=== PATIENT | female | born 1955 | race African-American/Black ===

== ENCOUNTER 2018-09-05 21:31 | Inpatient (IN) ==
--- NOTE | 2018-09-05 22:21 | PROVIDER DOCUMENTATION ---
HPI-Syncope/Dizziness - General Chief Complaint: Seizure Stated Complaint: VOMITING AND LOSING CONSCIOUSNESS Time Seen by Provider: 09/05/18 22:13 Allergies/Adverse Reactions: Patient Allergies Allergy/AdvReac Type Severity Reaction Status Date / Time No Known Allergies Allergy Verified 08/30/17 20:00 Home Medications: Home Medication List Medication Instructions Recorded Confirmed Last Taken Type Levothyroxine [Synthroid] 50 mcg PO DAILY 04/14/14 09/06/18 08/30/17 08:00 History Amlodipine/Atorvastatin [Caduet 10 1 ea PO DAILY 09/06/18 09/06/18 Unknown History mg-20 mg Tablet] Amoxicillin 875 mg PO BID 09/06/18 09/06/18 Unknown History Lisinopril/Hydrochlorothiazide 1 ea PO DAILY 09/06/18 09/06/18 Unknown History [Lisinopril-Hctz 20-25 mg Tab] Loratadine 10 mg PO DAILY 09/06/18 09/06/18 Unknown History Mometasone Furoate [Nasonex] 17 gm NS 09/06/18 09/06/18 Unknown History - History of Present Illness-Syncope/Dizzy Nature of Presenting Problem: patient was reported having seizure, passed out and vomiting. patient stated she had these symptoms before and was never diagnosed of seizure. Prior Episodes: reports: single episode today Onset/Duration: reports: abrupt Timing: reports: improving, resolved prior to arrival Symptoms prior to episode: reports: none Context: reports: lost consciousness Location of injury. (If syncope resulted in an injury.): reports: none Current Symptoms: denies: fever, chills Review of Systems - Adult - REVIEW OF SYSTEMS - ADULT Constitutional: reports: no symptoms reported Eyes: reports: no symptoms reported Ears, Nose, Mouth & Throat: reports: no symptoms reported Cardiovascular: reports: no symptoms reported Respiratory: reports: no symptoms reported Gastrointestinal: reports: nausea, vomiting Genitourinary: reports: no symptoms reported Musculoskeletal: reports: no symptoms reported Integumentary: reports: no symptoms reported Neurological: reports: seizure, syncope Psychiatric: reports: no symptoms reported Hematologic/Lymphatic: reports: no symptoms reported Allergic/Immunologic: reports: no symptoms reported Past History - Adult - PAST MEDICAL HISTORY-ADULT Review of Records: reports: Nursing Assessment Review Cardiovascular: reports: HTN, hyperlipidemia Neurological: denies: cancer/tumor, CVA, stroke deficits, Seizures/Epilepsy Endocrine/Immune: reports: thyroid disorder - PRIOR SURGERIES/PROCEDURES Surgical/Procedure History: reports: hysterectomy - IMMUNIZATION STATUS Childhood Immunizations: See Nurse Assessment Flu Vaccine: See Nurse Assessment - FAMILY HISTORY Family History: reviewed, not pertinent Physical Exam-General - PHYSICAL EXAM-ADULT Initial Vital Signs Reviewed: Yes - CONSTITUTIONAL General Appearance: alert, no apparent distress - EYES Eyes: PERRL/EOMI - HEAD, EARS, NOSE, MOUTH & THROAT HENMT: normocephalic/atraumatic - NECK Neck: non-tender, full range of motion, supple - RESPIRATORY Respiratory: chest non-tender, lungs clear, normal breath sounds, no pleuratic chest pain, no respiratory distress, no accessory muscle use - CARDIOVASCULAR Cardiovascular: no edema, bradycardia - GASTROINTESTINAL (ABDOMEN) Abdominal Exam: non tender, soft - LYMPHATIC Lymphatic: no adenopathy - MUSCULOSKELETAL Back Exam: normal inspection, no CVA tenderness, no vertebral tenderness Extremity: non-tender, normal inspection - SKIN Integumentary: normal color - NEUROLOGIC Neurologic: scrub woman II-XII nml as tested, grossly normal Progress - PLAN OF CARE/RESULTS Progress/Plan/Lab Results: Vital Signs - 8 hr 09/05/18 22:05 09/05/18 23:05 09/05/18 23:10 Temperature 97.5 F L Pulse Rate 56 L 46 L 47 L Respiratory Rate 20 18 18 Blood Pressure 113/55 114/57 O2 Sat by Pulse Oximetry 96 99 96 09/05/18 23:20 09/05/18 23:30 09/05/18 23:40 Temperature Pulse Rate 64 53 L 46 L Respiratory Rate 17 18 18 Blood Pressure O2 Sat by Pulse Oximetry 100 100 09/05/18 23:50 09/06/18 00:00 09/06/18 00:10 Temperature Pulse Rate 45 L Respiratory Rate 17 22 20 Blood Pressure O2 Sat by Pulse Oximetry 100 100 100 09/06/18 00:20 09/06/18 00:30 09/06/18 00:40 Temperature Pulse Rate 52 L 60 47 L Respiratory Rate 18 21 16 Blood Pressure O2 Sat by Pulse Oximetry 99 Laboratory Results - last 24 hr 09/05/18 09/05/18 09/05/18 23:00 23:00 23:00 WBC 5.15 RBC 4.15 L Hgb 12.1 Hct 35.7 L MCV 86.0 MCH 29.2 MCHC 33.9 RDW Std Deviation 13.2 Plt Count 213 MPV 10.3 Neut % (Auto) 65.0 Lymph % (Auto) 24.3 Coos % (Auto) 7.8 Eos % (Auto) 2.5 Baso % (Auto) 0.4 Neut # (Auto) 3.35 Lymph # (Auto) 1.25 [place]os # (Auto) 0.40 Eos # (Auto) 0.13 Baso # (Auto) 0.02 PT 12.7 INR 0.89 PTT (Actin FS) 26.3 Sodium 140 Potassium 3.4 L Chloride 97 L Carbon Dioxide 31 Anion Gap 12 BUN 13 Creatinine 0.9 Estimated GFR/1.73 m2 > 60 BUN/Creatinine Ratio 14 Glucose 103 Calculated Osmolality 280 Calcium 8.9 Total Bilirubin 0.25 AST 28 ALT 18 Alkaline Phosphatase 51 Troponin T Total Protein 7.0 Albumin 4.0 Globulin 3.0 Albumin/Globulin Ratio 1.3 09/05/18 23:00 WBC RBC Hgb Hct MCV MCH MCHC RDW Std Deviation Plt Count MPV Neut % (Auto) Lymph % (Auto) Coos % (Auto) Eos % (Auto) Baso % (Auto) Neut # (Auto) Lymph # (Auto) Coos # (Auto) Eos # (Auto) Baso # (Auto) PT INR PTT (Actin FS) Sodium Potassium Chloride Carbon Dioxide Anion Gap BUN Creatinine Estimated GFR/1.73 m2 BUN/Creatinine Ratio Glucose Calculated Osmolality Calcium Total Bilirubin AST ALT Alkaline Phosphatase Troponin T 0.053 Total Protein Albumin Globulin Albumin/Globulin Ratio Orders Category Date Time Status Cardiac Monitoring DIRECTED Care 09/05/18 22:18 Active Finger Stick Blood Sugar (ED) DIRECTED Care 09/05/18 22:18 Active Misc. NRSG Communication Order DIRECTED Care 09/05/18 22:18 Active Saline Loc NOW Care 09/05/18 22:18 Active CHEST-PORTABLE [RAD] Stat Exams 09/05/18 22:[address] HEAD W/O CONTRAST [CT] Stat Exams 09/05/18 22:18 Taken CBC WITH ELECTRONIC DIFF [HEME] Stat Lab 09/05/18 23:00 Completed COMPREHENSIVE METABOLIC PANEL [CHEM] Stat Lab 09/05/18 23:00 Completed PROTIME WITH INR [COAG] Stat Lab 09/05/18 23:00 Completed PTT [COAG] Stat Lab 09/05/18 23:00 Completed TROPONIN T Stat Lab 09/05/18 23:00 Completed URINALYSIS W/POSS RFLX CULT [URINALYSIS] Stat Lab 09/05/18 22:18 Uncollected EKG [EKG] Stat Ther 09/05/18 22:18 Ordered Result Diagrams: 09/05/18 23:00 09/05/18 23:00 - EKG 1 Time of EKG reading by physician:: 21:53 (poss anterior infarct, age undetermined ) EKG Read and Signed by:: Theresa Campuzano EKG Interpretation (*Must complete 3 of following elements*): Abnormal Rate: 46 Rhythm: Sinus Bradycardia [place]: normal QRS: normal ID Interval: normal ST Wave: normal - CT/MRI 1 CT Study: Head (Impression: 1. No acute intracranial abnormality. Age- appropriate exam. 2. Intracranial exam w/out significant change.) Impression: Normal - CONSULTS/PCP/HOSPITALIST Notification #1 *Consult/PCP/Hospitalist*: spoke with Dr Paige Consult Disposition: other (recommended admission for further work up) #2 Consult: Dr Padgett Time Discussed: 01:08 Consult Disposition: Admit Departure - Departure Date of Disposition Decision: 09/06/18 Time of Disposition Decision: 01:06 DIAGNOSIS: Syncope, Bradycardia, Abnormal ECG Disposition: ADMITTED INPATIENT 09 Certified Medical Emergency: Emergent Condition: Good Referrals and Follow-Ups: None,PCP [Primary Care Provider] - - Critical Care Note This patient required my direct & personal management of CC.: No Attestation - Physician/ AVELINA Attestation Patient care was provided by Advanced Practice Provider:: No The physician spent face to face time with patient:: Yes Advanced Practice Provider documentation review:: Supervising physician onsite and consulted in the evaluation and care of this patient. The physician did have a face to face encounter with the patient.
[2018-09-05 23:22] LABS: BASO# 0.02 X1000 (0.0-0.2); BASO% 0.4 % (0.0-0.8); EOS# 0.13 X1000 (0.0-0.7); EOS% 2.5 % (0.0-10.0); HEMATOCRIT 35.7 % (37.0-47.0); HEMOGLOBIN 12.1 g/dL (12.0-16.0); LYMPH# 1.25 X1000 (1.2-3.4); LYMPH% 24.3 % (20.5-51.1); MCH 29.2 PG (27-31); MCHC 33.9 g/dL (33-37); MONO% 7.8 % (1.7-9.3); MPV 10.3 FL (7.4-10.4); NEUT# 3.35 X1000 (1.4-6.5); PLT 213 X1000 (130-400); RBC 4.15 XMIL (4.2-5.4); RDW 13.2 % (11.5-14.5); WBC 5.15 X1000 (4.8-10.8)
[2018-09-05 23:30] LABS: INR 0.89; PROTIME 12.7 Seconds (11.0-16.0)
[2018-09-05 23:31] LABS: PTT 26.3 Seconds (22.3-41.8)
[2018-09-05 23:47] LABS: AGAP 12; ALB/GLOB RATIO 1.3; ALKALINE PHOSPHATASE 51 U/L (32-104); BUN 13 mg/dL (8-22); CALCIUM 8.9 mg/dL (8.8-10.2); CHLORIDE 97 mmol/L (98-107); COSMO 280; CREATININE 0.9 mg/dL (0.5-0.9); ESTIMATED GFR > 60; GLUCOSE 103 mg/dL (70-104); GOT 28 U/L (10-30); GPT 18 U/L (10-36); POTASSIUM 3.4 mmol/L (3.5-5.1); SODIUM 140 mmol/L (136-145); TCO2 31 mmol/L (25-35); TOTAL BILIRUBIN 0.25 mg/dL (0.20-1.00)
[2018-09-06] MEDS ORDERED: KLOR-CON PO ONE (01:07)
--- NOTE | 2018-09-06 02:40 | HISTORY AND PHYSICAL ---
CHIEF COMPLAINT: Syncope, vomiting. HISTORY OF PRESENT ILLNESS: Ms. Skaggs is a 63-year-old female with a past medical history of hypertension, GERD, hyperlipidemia and hypothyroidism, who comes into the emergency room after having a spell tonight where she vomited, lost consciousness. Per the son at the bedside, during this time she was very rigid. She also had loss of bowel and bladder during the episode. Reportedly, this happens every so often. The patient stated "once in a blue borges." Initial workup in the ER was negative other than she was noted to be bradycardic with a rate in the high 40s and 50s. She will be admitted for further evaluation and treatment. PAST MEDICAL HISTORY: See HPI. PREVIOUS SURGICAL HISTORY: Hysterectomy and possible thyroidectomy. SOCIAL HISTORY: She smoked 1-2 packs per day. She has reportedly cut back to less than half a pack a day. No alcohol or illicit drugs. FAMILY HISTORY: Positive for hypertension and coronary artery disease. ALLERGIES: No known drug allergies. HOME MEDICATION: 1. Amoxicillin 875 p.o. b.i.d. 2. Nasonex. 3. Caduet 10/20 mg 1 p.o. daily. 4. Levothyroxine 50 mcg p.o. daily. 5. Zestoretic 20/25 one p.o. daily. 6. Loratadine 10 mg p.o. daily. REVIEW OF SYSTEMS: Fourteen point review of systems conducted with the patient. Pertinent positives listed above in the HPI. She also stated that she felt dazed after the episode. All other systems were reviewed and found to be negative. PHYSICAL EXAMINATION: VITAL SIGNS: Temperature 97.5, pulse 46-60, respirations 21, blood pressure 114/57, oxygen saturation 100% on room air. GENERAL: Pleasant 63-year-old female lying in the ER stretcher. Son at bedside. She answers all questions appropriately. She is alert and oriented times 3. HEENT: Head is atraumatic, normocephalic. Pupils equal, round, reactive to light. Extraocular eye movement intact. Sclerae are anicteric. Conjunctivae are pink. Oral mucosa is moist. NECK: Supple. No JVD. No thyromegaly. Trachea is midline. No cervical lymphadenopathy. CARDIAC: S1, S2 appreciated. No murmurs, gallops, or rubs. She is bradycardic. LUNGS: Clear to auscultation bilaterally. No rhonchi, wheezes, rales. Symmetric rise and fall with respirations. ABDOMEN: Soft, nondistended, nontender. Bowel sounds present all 4 quadrants, normoactive. No pulsatile mass. No organomegaly. EXTREMITIES: No clubbing, cyanosis, or edema. Two-plus pedal pulses bilaterally. NEUROLOGICAL: Alert and oriented times 3. Cranial nerves 2 through 12 grossly intact. MUSCULOSKELETAL: Grossly normal. GENITOURINARY: No bladder distention. Patient voids. Otherwise deferred. DIAGNOSTIC DATA: CT of the head official report is pending. Chest x-ray: No infiltrates, no pulmonary edema. LABORATORY DATA: WBC 5.15. Hemoglobin 12.1. Hematocrit 35.7. Platelet count 213. Coagulation studies within normal limits. Chemistry within normal limits other than a potassium of 3.4. ASSESSMENT AND PLAN: 1. Bradycardia. This could be symptomatic and the reason for her episode. Consult Dr. Paige. Monitor with telemetry. 2. Questionable seizure. Patient had a loss of bowel and bladder continence as well as what sounded like a postictal phase afterwards. We will consult Dr. Gilmore to evaluate. We will not load with seizure medications at this time. 3. Hypertension. Continue home medications. 4. Hypokalemia. Patient takes a mild Dyazide diuretic. It is likely related to this. We will replace and recheck. 5. Hypothyroidism. Continue Synthroid. Check TSH. Further recommendations per patient's clinical course. Dictated by BELÉN Beaver for Fletcher Padgett MD I have performed a face to face diagnostic evaluation. Labs/ xrays - reviewed. Exam- chest - clear, CV- regular, Neuro- non focal A/P- Bradycardia- Admit, cardiology consult Dr. Padgett cc: BELÉN Beaver MD [facility]
[2018-09-06] MEDS: NS 1,000 ML IV SCH (03:05)
[2018-09-06 03:25] LABS: URINE SOURCE CLEAN CATCH
[2018-09-06 03:34] LABS: BILIRUBIN URINE NEGATIVE (NEGATIVE); BLOOD URINE NEGATIVE (NEGATIVE); COLOR YELLOW; GLUCOSE URINE NEGATIVE (NEGATIVE); KETONE URINE NEGATIVE (NEGATIVE); LEUKOCYTES URINE NEGATIVE (NEGATIVE); NITRITE URINE NEGATIVE (NEGATIVE); PROTEIN URINE NEGATIVE (NEGATIVE); SP GRAVITY URINE 1.002; TURBIDITY URINE CLEAR (CLEAR); UROBILINOGEN URINE NORMAL (NORMAL)
[2018-09-06 03:35] LABS: UR EPITHELIAL CELLS <10 /HPF (<10); URINE BACTERIA NEGATIVE /HPF; URINE RBC <10 /HPF (<10); URINE WBC <10 /HPF (<10)
--- NOTE | 2018-09-06 05:53 | Diag Imaging Result Doc PS360 ---
EXAM: CT HEAD W/O CONTRAST HISTORY: syncope TECHNIQUE: CT head without contrast COMPARISON: 03/22/2015 FINDINGS: No parenchymal hemorrhage. No epidural or subdural hematoma. No subarachnoid hemorrhage. There are mild chronic microvascular ischemic changes. No mass identified on this noncontrasted exam. No hydrocephalus. No sinus opacification. IMPRESSION: No hemorrhage. Mild chronic microvascular ischemic changes. A preliminary report was given at 11:17 PM on 09/05/2018 This exam was performed using automated exposure control, adjustment of mA or kV according to patient size, and/or use of iterative reconstruction technique. Electronically signed by Ra Wang 09/06/2018 5:51 AM
--- NOTE | 2018-09-06 06:58 | EKG Report ---
Test Performed on : 09/06/2018 06:48:31 AM Test Reason : chest pain Blood Pressure : / mmHG Vent. Rate : 045 BPM Atrial Rate : 045 BPM P-R Int : 150 ms QRS Dur : 084 ms QT Int : 490 ms P-R-T Axes : 037 013 035 degrees QTc Int : 423 ms Sinus bradycardia. with premature atrial complexes. Low voltage QRS Cannot rule out Anterior infarct (cited on or before 30-AUG-2017) Abnormal ECG When compared with ECG of 05-SEP-2018 22:34, (Unconfirmed) premature atrial complexes. are now present Confirmed by Kelvin BROCK, Tao Sanders ([id number]) on 09/06/2018 12:49:11 PM
--- NOTE | 2018-09-06 07:51 | Diag Imaging Result Doc PS360 ---
EXAM: CHEST-PORTABLE INDICATION: syncope TECHNIQUE: One view COMPARISON: 08/30/2017 FINDINGS: The lungs are grossly clear. There is no discrete pleural fluid collection or pneumothorax. The cardiomediastinal silhouette and central vasculature are grossly unremarkable. IMPRESSION: No evidence of acute pathology by plain radiograph. Electronically signed by Homar Arndt 09/06/2018 7:49 AM
--- NOTE | 2018-09-06 08:20 | PROGRESS NOTE ---
DATE: 09/06/2018 SUBJECTIVE: Ms. Victor Hugo Skaggs came in this morning because of syncope and vomiting. She has no primary care physician. A 63-year-old female with a past medical history of hypertension, gastroesophageal reflux disease, hyperlipidemia, and hypothyroidism, who comes into the emergency room having had a spell. Per the daughter, she has these spells a couple of times a month. Usually, she notes smacking of her lips, and then she starts vomiting. Then after that, usually loss of consciousness for a short time. She does not describe any flailing or tonic- clonic movement. They brought her into the emergency room yesterday, and her heart rate was down in the 40s and 50s. It looked like sinus bradycardia. PAST MEDICAL HISTORY: She has had a hysterectomy and possible thyroidectomy. She does not describe any dyspepsia or nausea related to meals either before meals or after meals. No real weight loss. She does not describe any focal neurologic deficits. CURRENT MEDICATIONS: 1. She was on amoxicillin 875 mg b.i.d. 2. Nasonex Caduet which is a combination of Norvasc and MINA inhibitor 10 to 20 1 a day. 3. Levothyroxine 50 mcg a day. 4. Zestoretic 20 to 25 daily. 5. Loratadine 10 mg a day. OBJECTIVE: General: She is awake and alert, and pleasant. Vital Signs: Temperature 98.3, pulse is 46, respirations 18, and blood pressure 134/75. HEENT: Pupils are equal and round. Lungs: Clear in all lung hamm. Cardiovascular: Regular rhythm and rate without murmur or S3. Abdomen: Soft. Skin: Warm and dry. Weight 167 pounds. LABORATORY: White count 5150, hematocrit 35, and platelet count 213,000. Sodium 140, potassium 3.4, chloride 97, BUN is 13, creatinine 0.9, AST 28, ALT 18, alkaline phosphatase 51, albumin is 4.0. ProTime is 12.7. INR is 0.89. PTT is 26. Urinalysis unremarkable. CT of the head without contrast. No hemorrhage. Mild chronic microvascular ischemic changes but nothing acute. ASSESSMENT AND PLAN: Syncopal episodes with features that could be suggestive of seizure. Also, some bradycardia and could be a vasovagal component. Neurology and Cardiology were consulted. Her lab is pretty unremarkable. I would like to check her thyroid function, B12 and folate, and suspect an EEG would be helpful. cc: Zen Stringer MD
[2018-09-06] MEDS: CLARITIN PO SCH (08:29)
[2018-09-06] MEDS: PRINZIDE 10/12.5MG PO SCH (08:29)
[2018-09-06] MEDS: LIPITOR PO SCH (08:29)
[2018-09-06] MEDS: SYNTHROID PO SCH (08:29)
[2018-09-06] MEDS: NORVASC PO SCH (08:29)
--- NOTE | 2018-09-06 09:17 | EKG Report ---
Test Performed on : 09/05/2018 10:34:01 PM Test Reason : Stroke like symptoms Blood Pressure : / mmHG Vent. Rate : 045 BPM Atrial Rate : 045 BPM P-R Int : 152 ms QRS Dur : 088 ms QT Int : 502 ms P-R-T Axes : 032 000 015 degrees QTc Int : 434 ms Sinus bradycardia. Cannot rule out Anterior infarct (cited on or before 30-AUG-2017) Abnormal ECG When compared with ECG of 05-SEP-2018 21:53, (Unconfirmed) No significant change was found Unconfirmed Result
--- NOTE | 2018-09-06 09:18 | EKG Report ---
Test Performed on : 09/05/2018 9:53:18 PM Test Reason : ED. No order in [place] Blood Pressure : / mmHG Vent. Rate : 046 BPM Atrial Rate : 046 BPM P-R Int : 156 ms QRS Dur : 084 ms QT Int : 488 ms P-R-T Axes : 072 -11 005 degrees QTc Int : 427 ms Sinus bradycardia. Possible Anterior infarct (cited on or before 30-AUG-2017) Abnormal ECG When compared with ECG of 30-AUG-2017 20:54, No significant change was found Unconfirmed Result
--- NOTE | 2018-09-06 11:04 | CONSULTATION ---
DATE OF CONSULTATION: 09/06/2018 HISTORY OF PRESENT ILLNESS: Ms. Skaggs is 63 years old and there is history of episodes with question of seizure. History from the patient and attentive daughter at the bedside and from review of hospital records is that she has had episodes several times each year for the last several years. Episodes have all been fairly similar. She reports sudden feeling of "sick at my stomach" with dizziness and "lambert closing in" sensation followed by vomiting and then loss of consciousness. When she recovers consciousness, she feels a little bit weak all over. She has frequent bowel and bladder incontinence with these episodes. She has fallen several times with minor head injuries and some head bruising but no more serious injury. She seems "confused" according to daughter for a short time after the episode and then seems completely recovered in a matter of minutes. There is no history of prior serious head injury. She has never had diagnosed stroke. She has never had diagnosis or treatment for seizure. She denies illicit drug use, ethanol abuse, drug intoxication. She reports [facility] and takes her medicines correctly. She does not have benzodiazepines, sedatives, anything else on her medicine list that likely would be associated with seizure, either with intoxication or in withdrawal. Workup here includes noncontrast CT of the head reported unremarkable and unchanged compared to February 2015 scan. Lab work has been unremarkable. A 2014 carotid ultrasound was unremarkable. A 2014 echocardiogram was unremarkable. She has been afebrile here. Heart rate has ranged from 40s up to 70s. Systolic blood pressure has ranged 110s to 130s. PHYSICAL EXAMINATION: Neurologic: She is awake, alert, attentive. Speech is not dysarthric. Language function is intact. Memory is good. She is oriented. Strength is normal in the arms and legs. She did well on [id number] testing. Visual hamm are full. Head and neck are unremarkable. I did not test her gait. IMPRESSION: Episodes of collapse with clonic and tonic features, incontinence, striking similarly from one episode to another. Features are consistent with a generalized seizure but the postictal state seems to be very brief. Also, bradycardia is noted. I will order EEG. Further plans will depend on that report and on Cardiology opinion. Thanks for asking Neurology to see Ms. Skaggs. cc: MD KARIN Omalley III
--- NOTE | 2018-09-06 15:08 | CARDIOLOGY CONSULTATION ---
DATE: 09/06/2018 CHIEF COMPLAINT: Syncope. HISTORY OF PRESENT ILLNESS: Ms. Skaggs is a 63-year-old black female with a history of hypertension, reflux disease, hyperlipidemia, and hypothyroidism. She presented to the emergency room where after she had an episode of syncope occurring yesterday. Apparently at some point, during the process of passing out she vomited as well as lost control of her bowels and bladder. The patient is a little bit of a difficult historian regarding the timing of these events. She has had these episodes periodically over the last year. She has had no other evaluations. PAST MEDICAL HISTORY: 1. Significant for hypertension. 2. Reflux disease. 3. Hyperlipidemia. 4. Hypothyroidism. SOCIAL HISTORY: She smokes 1 to 2 packs per day. No alcohol or illicit drugs. FAMILY HISTORY: Significant for hypertension and coronary artery disease. REVIEW OF SYSTEMS: A 10-system review of systems is negative except for those mentioned in HPI. PHYSICAL EXAMINATION: Vital Signs: She is afebrile. Heart rate is 69, blood pressure of 132/72. She was not orthostatic. General: In no acute distress. HEENT: Oropharynx is moist. Poor dentition. Eye examination, pink conjunctivae. White sclerae. Neck: Examination shows no obvious thyromegaly or thyroid tenderness. Cardiovascular: She sounds to be in a regular rate and rhythm. She has no obvious murmurs. She has no S3. She has no lower extremity edema. Chest: Sounds clear bilaterally. She has no increased work of breathing. Abdomen: Soft, nontender, nondistended. She has no obvious organomegaly. Skin: Warm and dry throughout without any rashes. Neurological: Moving all extremities well. She has no lateralizing deficits. PERTINENT DATA: Chest x-ray shows no evidence of acute pathology. Her EKGs reviewed by me. Initially September 05 at 21:53, shows sinus bradycardia at 46 beats per minute. Subsequent EKG occurring September 05 at 22:34 shows sinus rhythm, rate of 45 beats per minute. No acute ischemic changes. Her final EKG occurring September 06 at 6:48 shows sinus rhythm, rate of 45 beats per minute. White count is 5.1, hematocrit 35, platelet count is 213,000. INR 0.89. Sodium 140, potassium 3.4, BUN 13, creatinine 0.9. ASSESSMENT: Ms. Skaggs is a 63-year-old female with a history of bradycardia who apparently presented with syncope or possible seizure-like activity. PLAN: Patient has had frequent episodes of heart rates in the 50s and occasionally in the 40s in the past. It does not seem her rate is significantly changed from previous. We will check a home heart rate monitor to further evaluate these episodes. An echocardiogram is currently pending as well as her thyroid studies. If these are unremarkable, then she could likely be discharged with further neurologic evaluation as needed. cc: Tom Novoa MD
[2018-09-07] MEDS: SYNTHROID PO SCH (06:01)
[2018-09-07] MEDS: NS 1,000 ML IV SCH ×2 (06:02→14:36)
[2018-09-07 06:08] LABS: HEMATOCRIT 38.3 % (37.0-47.0); HEMOGLOBIN 12.6 g/dL (12.0-16.0); LYMPH% 53.9 % (20.5-51.1); MCHC 32.9 g/dL (33-37)
[2018-09-07 06:22] LABS: BASO# 0.01 X1000 (0.0-0.2); BASO% 0.3 % (0.0-0.8); EOS# 0.16 X1000 (0.0-0.7); EOS% 5.2 % (0.0-10.0); LYMPH# 1.66 X1000 (1.2-3.4); MCH 28.1 PG (27-31); MCV 85.5 FL (81-99); MONO% 9.7 % (1.7-9.3); MPV 10.3 FL (7.4-10.4); NEUT# 0.95 X1000 (1.4-6.5); NEUT% 30.9 % (42.2-75.2); PLT 202 X1000 (130-400); RBC 4.48 XMIL (4.2-5.4); RDW 13.2 % (11.5-14.5); WBC 3.08 X1000 (4.8-10.8)
[2018-09-07 06:31] LABS: AGAP 10; BUN 8 mg/dL (8-22); CALCIUM 8.8 mg/dL (8.8-10.2); CHLORIDE 103 mmol/L (98-107); COSMO 280; CREATININE 0.8 mg/dL (0.5-0.9); ESTIMATED GFR > 60; GLUCOSE 98 mg/dL (70-104); POTASSIUM 3.4 mmol/L (3.5-5.1); SODIUM 141 mmol/L (136-145); TCO2 28 mmol/L (25-35)
[2018-09-07 06:35] LABS: FREE T4 1.3 ng/dL (0.93-1.70)
--- NOTE | 2018-09-07 08:20 | ECHO REPORT ---
ORDER DATE: 09/06/2018 ECHOCARDIOGRAPHIC MEASUREMENTS: 1. Interventricular septum 1.1. 2. Left ventricular posterior wall 1.1. 3. Diastolic diameter 4.3. 4. Left atrium 4.5. 5. Aorta 2.8. SUMMARY OF TWO-DIMENSIONAL IMAGIN. Tricuspid valve was normal. 2. Aortic valve leaflets were trileaflet. Pulmonic valve was normal. There is left atrial enlargement. 3. Mitral valve leaflets were normal. There is annular calcification. 4. Tricuspid valve was normal. There is mild tricuspid regurgitation. Peak velocity across the tricuspid valve was 2 m/sec. 5. Peak velocity across the aortic valve less than 2 m/sec by Doppler studies. There is no aortic stenosis or regurgitation. Normal left ventricular cavity size. Estimated ejection fraction of 65% to 70%. There is diastolic dysfunction. There is mild mitral regurgitation. 6. There is no pericardial effusion or obvious intracardiac mass or thrombus seen. cc: MD Jamia Cabrera PA
[2018-09-07] MEDS: ZOFRAN IV PRN (08:51)
[2018-09-07] MEDS: LIPITOR PO SCH (08:52)
[2018-09-07] MEDS: TYLENOL PO PRN (08:52)
[2018-09-07] MEDS: CLARITIN PO SCH (08:52)
[2018-09-07] MEDS: NORVASC PO SCH (08:52)
[2018-09-07] MEDS: PRINZIDE 10/12.5MG PO SCH (08:52)
[2018-09-07] MEDS ORDERED: KLOR-CON PO ONE (08:54)
[2018-09-07] MEDS: MIRALAX PO SCH ×2 (09:17→21:23)
--- NOTE | 2018-09-07 09:49 | PROGRESS NOTE ---
DATE: 09/07/2018 SUBJECTIVE: As per the patient, she is feeling better. She feels some abdominal discomfort and she believes it is has constipation so I will start this patient on twice a day MiraLAX. Potassium level is low and I will replace it. I believe the EEG has been done, pending report and recommendations. Apparently, she has been having seizures but she has not been placed on seizure medications. Neurology department following this patient closely. She is still bradycardic and, as per the patient, this is chronic and it has been on and off. OBJECTIVE: Vital Signs: Temperature 97.7 degrees, pulse 51, respiratory rate 12, blood pressure 160/70, oxygen saturation is 100% on room air. HEENT: Head normocephalic. No trauma. PERRLA. Neck: Supple. No JVD. No masses. Central trachea. Chest: Clear to auscultation. No wheezing. No rales. Abdomen: Soft. Some discomfort to palpation at the level of the epigastric area. Cardiovascular: RRR. Bradycardic. Extremities: No edema, no clubbing, no cyanosis. Neurological Examination: This patient is alert. She is oriented. She is following commands. She does have generalized weakness. Laboratory: WBC 3, hemoglobin 12.6, hematocrit 38.3, platelets 202,000. Sodium 141, potassium 3.4, chloride 103, bicarbonate 28, BUN 8, creatinine 0.8, glucose 98, calcium 8.8. ASSESSMENT AND PLAN: 1. Syncope. This patient has been having some features that could be suggestive of seizures. Neurology department already did an electroencephalogram and will follow this patient closely, pending report and recommendations. She is not on any seizure medication for now. 2. Bradycardia. This patient has been sinus bradycardic since admission. It looks like this is not a new condition. Cardiology department on board. Echocardiogram showed just some diastolic dysfunction but the ejection fraction is okay as well as the rest of the heart, TSH and T4 within normal limits. 3. History of hypertension. Aware. Continue to monitor. 4. Gastroesophageal reflux disease. Aware. 5. Constipation. Continue with MiraLAX twice a day. 6. Hypothyroidism. Continue with Synthroid. cc: Jimbo Gray MD
[2018-09-07] MEDS ORDERED: KEPPRA PO ONE (15:17)
--- NOTE | 2018-09-07 15:40 | PROGRESS NOTE ---
DATE: 09/07/2018 SUBJECTIVE: Ms. Skaggs has not had any more episodes. I have reviewed the cardiology consult notes. Bradycardia is a concern. Her EEG showed no definite epileptiform discharge. IMPRESSION: Episodes of altered awareness with some features typical of seizure, but still possible these are primarily syncope associated with bradycardia with tonic and clonic features. The lack of postictal state is noted. I think it would be reasonable to recommend starting medicine for seizure control unless Cardiology feels strongly the episodes are due to a primary cardiac problem. If she has episodes with therapeutic seizure medication level, we can more strongly consider non- neurologic explanations. I have encouraged her to be careful with activities. We specifically discussed the [place] Law as it pertains to driving. I will arrange to follow her after discharge. We considered several seizure medicine options. Renal function is good and should not be a restriction. I believe she is surly at times and levetiracetam might aggravate that, but we will try levetiracetam first. On followup, depending on her tolerance for levetiracetam, we can continue or change medication. Thanks for asking Neurology to see Ms. Skaggs. cc: MD KARIN Omalley III
--- NOTE | 2018-09-07 18:28 | EEG REPORT ---
DATE: 09/06/2018 COMMENTS: This is a digitally recorded EEG on a 63-year-old patient with several episodes over several years, question of seizure but associated bradycardia. FINDINGS: During waking, medium and higher amplitude 10 hertz posterior rhythm is present symmetrically and reacts normally to eye opening. Background contains polymorphic and rhythmic theta frequencies over the frontal and central regions symmetrically. There is occasional sharply contoured slowing, but no definite epileptiform discharge was identified. Drowsing occurred briefly. Stage 2 sleep was not recorded. Photic stimulation did not significantly alter the record. Hyperventilation with good effort did not alter the record. INTERPRETATION: Normal EEG. CORRELATION: The absence of epileptiform discharges on a single EEG does not exclude a clinical diagnosis of seizures. cc: Shun Gilmore III, MD
[2018-09-08] MEDS: SYNTHROID PO SCH (06:08)
[2018-09-08 07:07] LABS: BASO# 0.02 X1000 (0.0-0.2); BASO% 0.6 % (0.0-0.8); EOS# 0.17 X1000 (0.0-0.7); EOS% 5.3 % (0.0-10.0); HEMATOCRIT 37.9 % (37.0-47.0); HEMOGLOBIN 12.4 g/dL (12.0-16.0); LYMPH% 47.2 % (20.5-51.1); MCH 28.4 PG (27-31); MCHC 32.7 g/dL (33-37); MCV 86.7 FL (81-99); MONO# 0.28 X1000 (0.11-0.59); MONO% 8.8 % (1.7-9.3); MPV 10.5 FL (7.4-10.4); NEUT# 1.21 X1000 (1.4-6.5); NEUT% 38.1 % (42.2-75.2); PLT 193 X1000 (130-400); RBC 4.37 XMIL (4.2-5.4); RDW 13.1 % (11.5-14.5); WBC 3.18 X1000 (4.8-10.8)
[2018-09-08 07:48] LABS: AGAP 9; BUN 8 mg/dL (8-22); CALCIUM 8.8 mg/dL (8.8-10.2); CHLORIDE 106 mmol/L (98-107); COSMO 283; CREATININE 0.8 mg/dL (0.5-0.9); ESTIMATED GFR > 60; GLUCOSE 94 mg/dL (70-104); POTASSIUM 3.9 mmol/L (3.5-5.1); SODIUM 143 mmol/L (136-145); TCO2 28 mmol/L (25-35)
[2018-09-08] MEDS: NS 1,000 ML IV SCH ×2 (10:08→14:31)
[2018-09-08] MEDS: PRINZIDE 10/12.5MG PO SCH (10:09)
[2018-09-08] MEDS: CLARITIN PO SCH (10:09)
[2018-09-08] MEDS: LIPITOR PO SCH (10:09)
[2018-09-08] MEDS: NORVASC PO SCH (10:09)
[2018-09-08] MEDS: MIRALAX PO SCH ×2 (10:11→20:54)
--- NOTE | 2018-09-08 13:09 | PROGRESS NOTE ---
DATE: 09/08/2018 Ms. Skaggs is awake and alert. She continues to appear dejected. She had appropriate conversation with me. We discussed my suggestion that she take medicine for seizures. We started levetiracetam yesterday and she tolerated the initial 500 mg dose. I will start levetiracetam 750 mg p.o. b.i.d. now. I have made arrangements to see Ms. Skaggs as an outpatient. Thanks for asking neurology to see her here. cc: Shun Gilmore III, MD
[2018-09-08] MEDS ORDERED: DULCOLAX PR PRN (13:10)
[2018-09-08] MEDS ORDERED: DULCOLAX PR ONE (13:10)
--- NOTE | 2018-09-08 13:52 | PROGRESS NOTE ---
DATE: 09/08/2018 SUBJECTIVE: As per the patient she is feeling about the same compared with yesterday. She is complaining of some abdominal discomfort and she believes it is probably due to constipation. She has been taking MiraLAX twice a day, but no bowel movement so far so I will ask for a suppository right now and also as needed. Cardiology Department has been planning to do a comma cardiac event detector as an outpatient. I do believe this will monitor her heart rate and rhythm for 1 month. They want to evaluate if the heart rate drops below her normal heart rate and/or if she is having pauses. OBJECTIVE: Vital Signs: Temperature 98.5 degrees, pulse 51, respiratory rate 16, blood pressure 121/62, oxygen saturation 99% on room air. HEENT: Head normocephalic. No trauma. PERRLA. Neck: Supple. No JVD. No masses. Central trachea. Chest: Clear to auscultation. No wheezing. No rales. Cardiovascular: RRR. Bradycardic. Abdomen: Soft. Some discomfort to palpation at the level of the epigastric area. Extremities: No edema. No clubbing. No cyanosis. Neurological: This patient is alert. She is oriented x3. She does have generalized weakness. LABORATORY DATA: WBC 3.1, hemoglobin 12.4, hematocrit 37.9, platelets 193,000. Sodium 143, potassium 3.9, chloride 106, bicarbonate 28, BUN 8, creatinine 0.8, glucose 94, calcium 8.8. ASSESSMENT AND PLAN: 1. Syncope. It looks like this patient has been having some fissures that could be suggestive of seizures. Neurology Department following this patient closely. Probably this patient will be on seizure medication. I will ask the Neurology Department about further management. It looks like we are going to start treatment with Keppra. 2. Bradycardia. This patient has been in sinus bradycardia since admission. It looks like this is not a new condition. Cardiology Department on board. Echocardiogram showed just some diastolic dysfunction, but the ejection fraction is fine. Thyroid stimulating hormone and T4 within normal limits. The plan is to go ahead and get a SHELBI which is a cardiac event detector I believe for 1 month to see if she is having some pauses or even more dropping of her heart rate. 3. History of hypertension. Aware. 4. Gastroesophageal reflux disease. Aware. 5. Constipation. Continue with MiraLAX. I will add Dulcolax suppositories. 6. Hypothyroidism. Continue with Synthroid. Overall this patient seems to be a little bit more stable. She is complaining of abdominal pain, I will add suppositories for that. Cardiology Department has decided to probably use a SHELBI to go home so they can monitor her heart rate and activity for a month. They do not feel that this syncopal episode was related to a cardiac event, but they cannot completely rule it out and that is why they will use the SHELBI at home. Neurology Department has suggested to put this patient on Keppra if the syncope was not related to a cardiac condition. I will try to discuss the case with the Neurology Department. Probably this patient can be discharged in the next 24 hours. cc: Jimbo Gray MD
[2018-09-08] MEDS: KEPPRA PO SCH ×2 (14:35→20:54)
[2018-09-09] MEDS: NS 1,000 ML IV SCH (06:06)
[2018-09-09] MEDS: SYNTHROID PO SCH (06:06)
[2018-09-09 07:06] LABS: AGAP 9; BUN 10 mg/dL (8-22); CALCIUM 8.4 mg/dL (8.8-10.2); CHLORIDE 107 mmol/L (98-107); COSMO 284; CREATININE 0.8 mg/dL (0.5-0.9); ESTIMATED GFR > 60; GLUCOSE 97 mg/dL (70-104); POTASSIUM 3.5 mmol/L (3.5-5.1); SODIUM 143 mmol/L (136-145); TCO2 27 mmol/L (25-35)
[2018-09-09] MEDS: CLARITIN PO SCH (08:46)
[2018-09-09] MEDS: PRINZIDE 10/12.5MG PO SCH (08:46)
[2018-09-09] MEDS: KEPPRA PO SCH ×2 (08:47→21:13)
[2018-09-09] MEDS: NORVASC PO SCH (08:47)
[2018-09-09] MEDS: LIPITOR PO SCH (08:47)
[2018-09-09] MEDS: MIRALAX PO SCH ×2 (08:47→21:14)
[2018-09-09] MEDS ORDERED: DULCOLAX PR ONE (14:03)
--- NOTE | 2018-09-09 14:28 | Diag Imaging Result Doc PS360 ---
EXAM: KUB ABDOMEN HISTORY: Abdominal pain TECHNIQUE: Abdomen single view COMPARISON: None. FINDINGS: No bowel obstruction. No organomegaly. No foreign body. There are multiple pelvic phleboliths. There are degenerative changes in lower lumbar spine. IMPRESSION: No acute abnormality. Electronically signed by Ra Wang 09/09/2018 2:25 PM
--- NOTE | 2018-09-09 14:32 | PROGRESS NOTE ---
DATE: 09/09/2018 SUBJECTIVE: This patient has been complaining of dizziness today and also she has been complaining of not having a bowel movement. I will continue with MiraLAX twice a day. I will get an x-ray of the abdomen to rule out any other condition. If the patient feels better in the morning, I will send her home. Recently, we started this patient on Keppra. Cardiology department is planning to do a SHELBI as an outpatient. OBJECTIVE: Vital Signs: Temperature 98.6 degrees, pulse 54, respiratory rate 22, blood pressure 100/53, oxygen saturation 100% on room air. HEENT: Head normocephalic. No trauma. PERRLA. Neck: Supple. No JVD. No masses. Central trachea. Chest: Clear to auscultation. No wheezing. No rales. Cardiovascular: RRR. Bradycardic. Abdomen: Soft. Some discomfort to palpation at the level of the epigastric area. No signs of peritoneal irritation. Positive bowel sounds. Extremities: No edema. No clubbing. No cyanosis. Neurological Examination: The patient is alert. She is oriented x3. She does has some generalized weakness and she is complaining of dizziness. Laboratory: Sodium 143, potassium 3.5, chloride 107, bicarbonate 27, BUN 10, creatinine 0.8, glucose 97, calcium 8.4. ASSESSMENT AND PLAN: 1. Syncope. It looks like this patient has been having some symptoms that could be suggestive of seizures. Neurology department evaluated this patient and they have decided to put this patient on Keppra. I agree with that. 2. Bradycardia. This patient has been bradycardic since admission and actually, this is not a new condition. Cardiology department on board. Echocardiogram looks fine, just some diastolic dysfunction, ejection fraction is good. TSH and T4 within normal limits. The plan is to go ahead and get cardiac event detector (SHELBI). She will use it for at least a month to see if she is having some pauses or even dropping on her baseline heart rate. 3. History of hypertension. Aware. 4. Gastroesophageal reflux disease. Aware. 5. Constipation. Continue with MiraLAX and Dulcolax suppositories. 6. Hypothyroidism. Continue with Synthroid. Overall, this patient is stable. Lab work is unremarkable. She is complaining of some dizziness. We will continue with the same management for now. Hopefully, this patient can be discharged in the next 24 hours if she is not having more symptoms. I have requested physical therapy and occupational therapy evaluation. cc: Jimbo Gray MD
[2018-09-09] MEDS ORDERED: FLEET ENEMA PR ONE (16:19)
[2018-09-09] MEDS: TYLENOL PO PRN (21:13)
[2018-09-09] MEDS: ZOFRAN IV PRN (21:14)
[2018-09-10] MEDS: NS 1,000 ML IV SCH (02:53)
[2018-09-10] MEDS: SYNTHROID PO SCH ×2 (05:20→08:04)
[2018-09-10] MEDS: PRINZIDE 10/12.5MG PO SCH (09:12)
[2018-09-10] MEDS: KEPPRA PO SCH (09:12)
[2018-09-10] MEDS: CLARITIN PO SCH (09:13)
[2018-09-10] MEDS: NORVASC PO SCH (09:13)
[2018-09-10] MEDS: MIRALAX PO SCH (09:13)
[2018-09-10] MEDS: LIPITOR PO SCH (09:13)
[2018-09-10 16:06] VITALS: BP 131/44
--- NOTE | 2018-09-10 20:00 | DISCHARGE SUMMARY ---
ADMISSION DATE: 09/06/2018 DISCHARGE DATE: 09/10/2018 ADMISSION DIAGNOSES: 1. Bradycardia. 2. Possible seizure. 3. Hypertension. 4. Hypokalemia. 5. Hypothyroidism. DISCHARGE DIAGNOSES: 1. Bradycardia. 2. Possible seizure. 3. Hypertension. 4. Hypokalemia. 5. Hypothyroidism. CONSULTATIONS: With Dr. Shun Gilmore with Neurology and Dr. Tom Novoa with Cardiology. DIAGNOSTIC PROCEDURES AND FINDINGS: EKG 09/05/2018: Sinus bradycardia 46 beats a minute. Nonspecific T-wave changes in the inferior leads. Chest x-ray 09/05/2018: No evidence of acute pathology. Head CT 09/05/2018: No hemorrhage. Mild chronic microvascular ischemic changes. Electroencephalogram 09/06/2018: Normal EEG. Echocardiogram 09/06/2018: EF 65% to 70%. There is diastolic dysfunction, mild MR. Abdomen x-ray 09/09/2018: No acute abnormality. HOSPITAL COURSE: Ms. Skaggs is a 63-year-old female with a history of hypertension, GERD, hyperlipidemia and hypothyroidism, who came in to the ER after having emesis and loss of consciousness. During that time she lost bowel and bladder continence. EMS was called, and she was brought to the ER. She was noted to be bradycardic in the 40s, but apparently this is chronic for her. She had a head CT, chest x-ray and labs done. Head CT showed chronic changes, nothing acute. Her labs showed mild hypokalemia, otherwise unremarkable. We consulted Neurology, who ordered an EEG. This did not show anything acute. Ultimately they did recommend Keppra. We consulted Cardiology for the bradycardia, and an echocardiogram was done which showed some mild diastolic dysfunction, otherwise negative. Cardiology also recommended a cardiac event detector on an outpatient basis, and for followup. We did feel that she was a bit weak, so we consulted Physical Therapy and Social Work, and ultimately rehab was recommended, but she refused. We then offered home health, and she refused that as well. She did have some mild constipation yesterday, and she was placed on MiraLAX. Overall she is improved. There have been no more neurologic episodes, and she is now stable for discharge. DISCHARGE MEDICATIONS: 1. Synthroid 50 mcg daily. 2. Lisinopril/hydrochlorothiazide 20/25 mg, 1 pill p.o. daily. 3. Caduet 10/20 mg pill, 1 daily. 4. MiraLAX 17 grams b.i.d. 5. Keppra 750 mg p.o. b.i.d. 6. Dulcolax 10 mg per rectum daily as needed. 7. Nasonex nasal spray daily. 8. Loratadine 10 mg daily. DISCHARGE DIET: Heart healthy. DISCHARGE ACTIVITY: Activity as tolerated. DISCHARGE VITAL SIGNS: Blood pressure 124/63, heart rate 49, respiratory rate 12, 02 saturation 96% on room air, temperature 98.4. DISPOSITION AND OTHER DISCHARGE INSTRUCTIONS: The patient has been discharged home to self-care. She is to follow up with Dr. Gilmore in 2-3 weeks, Dr. Novoa as directed, and PCP within the month. She is to continue all medications as directed and return to the ER or call 911 for worsening complaints or concerns. All questions were answered. Discharge time: Greater than 35 minutes. Dictated by BELÉN Schmid for Jimbo Gray MD cc: BELÉN Schmid MD Eston G. Norwood III, MD Peter Johnson, MD
== END 2018-09-10 16:37 | disposition home or self-care (01) | DRG 101 ==
LOC: ED 21:31 → 3S 09-06 01:49 → SUATTDRO 09-06 01:49 → 4N 09-07 12:32
PROVIDERS: ATTEND Internal Medicine
CPT/HCPCS: 70450; 71010; 71045; 74000; 74018; 80048; 80053; 81001; 82607; 82746; 84439; 84443; 84484; 85025; 85610; 85730; 93005; 93010; 93306; 95816; 97161; 97165; 99285; A9270; J2405; J7030